=== PATIENT | female | born 2000 | race Two or more races ===

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

== ENCOUNTER 2022-03-05 19:10 | Emergency (ER) | payer MEDICAID, OTHER ==
[~2022-03-05] VITALS: Ht 162.6 cm; Wt 53.5 kg
[2022-03-05 20:20] VITALS: BP 113/66
== END 2022-03-05 21:44 | disposition home or self-care (01) ==
LOC: ER 19:10
DX: S46.912A Strain of unspecified muscle, fascia and tendon at shoulder and upper arm level, left arm, initial encounter (principal); V43.52XA Car driver injured in collision with other type car in traffic accident, initial encounter; Y93.89 Activity, other specified; Y92.488 Other paved roadways as the place of occurrence of the external cause; Y99.8 Other external cause status
CPT/HCPCS: 73030